=== PATIENT | female | born 1980 | race Hispanic/Latino ===

== ENCOUNTER 2022-08-28 09:03 | Emergency (ER) | payer OTHER, SELFPAY ==
[2022-08-28 09:51] VITALS: BP 112/68; PULSE 84; RESP 16; TEMP 36.7; O2SAT 99
--- NOTE | 2022-08-28 10:13 | ED.URI ---
HPI - URI/Sore Throat General Chief Complaint: Upper Respiratory Infection Stated Complaint: ear pain/st/left eye pain Time Seen by Provider: 08/28/22 10:14 Source: patient and RN notes reviewed Mode of arrival: ambulatory Limitations: no limitations History of Present Illness HPI Narrative: 42-year-old female presenting for complaint of sinus congestion and drainage, right ear pain, and left eye irritation over the last 4 days. Sore throat started yesterday. Left eye feels like 'something is in the eye.' Denies pain, vision changes, photophobia, or discharge. She endorses her children were sick with influenza last week. She has not taken anything for symptoms. Denies cough or shortness of breath, wheezing, nausea vomiting or diarrhea, fevers or chills. MD elicited complaint: cough Related Data Allergies Allergy/AdvReac Type Severity Reaction Status Date / Time No Known Allergies Allergy Verified 08/28/22 10:12 Review of Systems Review of Systems: CONSTITUTIONAL: Denies malaise, chills, sweats, fever EYES: Denies visual changes, redness, or discharge ENT: Reports rhinorrhea, congestion, sinus pain, otalgia, sore throat CARDIOVASCULAR: Denies chest pain, palpitations, edema RESPIRATORY: Reports post nasal drainage. Denies dyspnea GASTROINTESTINAL: Denies abdominal pain, nausea, vomiting, diarrhea SKIN: Denies rash or itching MUSCULOSKELETAL: Denies myalgia NEUROLOGIC: Denies headache Exam Narrative: GENERAL: Ill-appearing, nontoxic EYES: PERRLA, EOMI conjunctivae clear, no FB. No lid swelling or nodules. ENT: Mucous membranes moist. TMs pearly wahl with dull light reflex bilaterally; no tragal tenderness. Oropharynx erythematous without lesions or exudate, no drooling, no hoarseness, no trismus, uvula midline. No tripod positioning, muffled voice, soft palate or pharyngeal wall bulging NECK: Supple. No lymphadenopathy CHEST: Clear to auscultation, breath sounds equal. HEART: Regular rate and rhythm. No murmur heard. SKIN: Warm, dry, no rash. NEURO: Alert and oriented x3. PSYCH: Normal mood and affect Course Course Emergency Course: Patient is aware of diagnosis, understands and agrees to treatment plan. Anticipatory guidance given. Patient agrees to follow-up as directed and is aware of reasons to seek care at the emergency department. Portions of this record may have been created with voice recognition software Level of Care: Express Care Visit Vital Signs Vital signs: Vital Signs Temperature 98.0 F 08/28/22 09:51 Pulse Rate 84 08/28/22 09:51 Respiratory Rate 16 08/28/22 09:51 Blood Pressure 112/68 08/28/22 09:51 Pulse Oximetry 99 08/28/22 09:51 Oxygen Delivery Room Air 08/28/22 09:51 Temperature 98.0 F 08/28/22 09:51 Pulse Rate 84 08/28/22 09:51 Respiratory Rate 16 08/28/22 09:51 Blood Pressure 112/68 08/28/22 09:51 Pulse Oximetry 99 08/28/22 09:51 Oxygen Delivery Room Air 08/28/22 09:51 reviewed Procedures FB Removal Eye Foreign Body #1: Foreign Body Removal Date: 08/28/22 Location: eye (L) Topical anesthetic used: tetracaine Evidence of corneal penetration: No Technique: irrigation and eye wash bottle Procedure performed under: direct visualization with magnification and other (dorsey lamp) Patient tolerated procedure: well and no complications Foreign Body Removal Narrative: No FB or corneal abrasion on exam. MDM - URI/Sore Throat MDM Narrative Medical decision making narrative: Advised supportive measures and signs/symptoms to go to the ER. Pt is appropriate for outpt treatment and f/u. Differential Diagnosis Differential diagnosis: Likely upper respiratory infection, sinusitis and viral infection Discharge Plan Discharge Clinical Impression: Viral infection, Irritation of left eye Patient Disposition: Home, Self-Care Condition: Stable Instructions: Upper Respiratory Infection (ED)
== END 2022-08-28 10:36 | disposition home or self-care (01) ==
PROVIDERS: Emergency Provider Nurse Practitioner Family
DX: B34.9 Viral infection, unspecified (principal); H57.12 Ocular pain, left eye
CPT/HCPCS: 99212; A9270; G0463

== ENCOUNTER 2023-05-29 15:44 | Emergency (ER) | payer OTHER, SELFPAY ==
[2023-05-29 15:54] VITALS: BP 113/82; PULSE 85; RESP 16; TEMP 36.8; O2SAT 99
--- NOTE | 2023-05-29 16:26 | ED.URI ---
HPI - URI/Sore Throat General Chief Complaint: Upper Respiratory Infection Stated Complaint: Cough and Shortness of Breath Time Seen by Provider: 05/29/23 16:19 Source: patient and RN notes reviewed Mode of arrival: ambulatory Limitations: no limitations History of Present Illness HPI Narrative: [age] year old female presents with concern for 2-3 day history of cough, chest congestion, ears popping, body aches, chills, rhinorrhea. She reports she has been taking allergy medicine without relief. 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 MD elicited complaint: cough and sore throat Related Data Allergies Allergy/AdvReac Type Severity Reaction Status Date / Time No Known Allergies Allergy Verified 05/29/23 16:03 Review of Systems Review of Systems: CONSTITUTIONAL: Reports malaise, chills. Denies fever. EYES: Denies visual changes, redness, or discharge. ENT: Reports rhinorrhea, congestion, otalgia and sore throat. CARDIOVASCULAR: Denies chest pain, palpitations, or edema. RESPIRATORY: Reports cough, chest congestion. Denies dyspnea. GASTROINTESTINAL: Denies abdominal pain, nausea, vomiting, diarrhea SKIN: Denies rash or itching. MUSCULOSKELETAL: Reports myalgia. NEUROLOGIC: Denies headache. All systems reviewed & are unremarkable except as noted in HPI and below PMFSH Comments At time of signature, agree with nursing past medical, surgical, social and family history. There is no relevant family history pertinent to the presenting complaint Exam Narrative: GENERAL: Nontoxic-appearing and in no acute distress. HEAD: Normocephalic EYES: PERRLA, conjunctivae clear ENT: Nares clear, turbinates edematous and erythematous, clear discharge. Mucous membranes moist. TM pearly wahl with dull light reflex bilaterally; no tragal tenderness. Oropharynx not erythematous without lesions. Tonsils not enlarged and without exudate, no drooling, no hoarseness, no trismus, uvula midline. NECK: Supple. No lymphadenopathy CHEST: Clear to auscultation, breath sounds equal. No wheezing, rhonchi, rales, or stridor. No respiratory distress, speaks in full sentences. HEART: Regular rate and rhythm. No murmur heard. SKIN: Warm, dry, no rash. NEURO: Alert and oriented x3. PSYCH: Normal mood and affect Course Course Emergency Course: Patient is aware of diagnosis, understands and agrees to treatment plan. Anticipatory guidance given. Patient agrees to follow-up as directed and is aware of reasons to seek care at the emergency department. Portions of this record may have been created with voice recognition software Level of Care: Express Care Visit Vital Signs Vital signs: Vital Signs Temperature 98.2 F 05/29/23 15:54 Pulse Rate 85 05/29/23 15:54 Respiratory Rate 16 05/29/23 15:54 Blood Pressure 113/82 05/29/23 15:54 Pulse Oximetry 99 05/29/23 15:54 Oxygen Delivery Room Air 05/29/23 15:54 Temperature 98.2 F 05/29/23 15:54 Pulse Rate 85 05/29/23 15:54 Respiratory Rate 16 05/29/23 15:54 Blood Pressure 113/82 05/29/23 15:54 Pulse Oximetry 99 05/29/23 15:54 Oxygen Delivery Room Air 05/29/23 15:54 Reviewed. MDM - URI/Sore Throat MDM Narrative Medical decision making narrative: Differential diagnosis considered: Garcia virus, strep pharyngitis, allergic rhinitis, upper respiratory tract infection, sinusitis, rhinosinusitis, nasopharyngitis. viral pharyngitis, otitis media, otitis externa, pneumonia, bronchitis, viral cough syndrome, viral syndrome, and influenza. Exam findings show no acute concerns or changes; patient is non-toxic appearing and is in no distress. Patient is appropriate for outpatient treatment and follow-up. Lab Data Attestation: I reviewed the patient's lab results. Labs: Lab Results 05/29/23 Range/Units 16:08 POC SARS CoV-2 Ag Negative (Negative) Influenza A Screen Negative Re
== END 2023-05-29 16:30 | disposition home or self-care (01) ==
PROVIDERS: Emergency Provider Nurse Practitioner
DX: J06.9 Acute upper respiratory infection, unspecified (principal); Z20.822 Contact with and (suspected) exposure to COVID-19
CPT/HCPCS: 87081; 87426; 87804; 87880; 99213; C9803; G0463

== ENCOUNTER 2023-10-14 08:18 | Outpatient (CLI) | payer OTHER, SELFPAY ==
--- NOTE | ~2023-10-14 | MM_ITS ---
EXAMINATION: MM screening andrew BI w harrison HISTORY: Screening TECHNIQUE: Craniocaudal and mediolateral oblique 3-D tomosynthesis images were obtained and synthetic 2-D images were generated. CAD analysis was submitted and interpreted. COMPARISON: No prior mammogram is available for comparison at this institution. BREAST PARENCHYMAL COMPOSITION: The breasts are heterogeneously dense, which may obscure small masses FINDINGS: There are bilateral breast asymmetries in the upper aspect of both breasts on MLO views. Th ere are no discrete masses or suspicious calcifications. IMPRESSION: 1. Bilateral breast asymmetries. 2. Additional mammographic views and possible breast ultrasound are recommended. BI-RADS Category 0: Incomplete: Needs additional imaging evaluation. Reviewed, dictated and finalized at location A. RNET ARCHITECT IMPRESSION: 1. Bilateral breast asymmetries. 2. Additional mammographic views and possible breast ultrasound are recommended . BI-RADS Category 0: Incomplete: Needs additional imaging evaluation.
== END 2023-10-14 08:19 | disposition home or self-care (01) ==
LOC: ANHIMG 08:21
PROVIDERS: Visit Provider Nurse Practitioner
DX: Z12.31 Encounter for screening mammogram for malignant neoplasm of breast (principal); R92.8 Other abnormal and inconclusive findings on diagnostic imaging of breast
CPT/HCPCS: 77063; 77067

== ENCOUNTER 2023-11-07 10:07 | Outpatient (CLI) | payer OTHER, SELFPAY ==
--- NOTE | ~2023-11-07 | MMUS_ITS ---
EXAMINATION: MM diagnostic andrew BI w harrison, US breast BI complete HISTORY: Bilateral breast asymmetries reported on 10/14/2023 bilateral screening mammogram examination TECHNIQUE: Additional 3-D tomosynthesis images of both breasts were performed and synthetic 2-D image s were generated. CAD analysis was submitted and interpreted. High resolution complete bilateral sugar st ultrasound examination including all 4 quadrants and subareolar area of each breast was performed. COMPARISON: 10/14/2023 bilateral screening mammogram FINDINGS: MAMMOGRAPHIC FINDINGS: Heterogeneously dense stroma in both breasts which may obscure masses. No suspicious mass, architectu ral distortion, malignant calcification, skin thickening or retraction of either breast is evident. ULTRASOUND: Right breast: Dense fibroglandular stroma is noted. In the subareolar area of the right breast there is a 0.9 x 1.4 cm circumscribed sonolucency with thr ough transmission and posterior enhancement consistent with simple cyst. No suspicious mass or shadowing of the right breast is detected. Left breast: There is dense fibroglandular stroma. No suspicious left breast mass or shadowing is det ected. IMPRESSION: 1. Benign right breast subareolar 1.4 cm simple cyst; no mammographic or sonographic evidence of donald gnancy in either breast is detected 2. Routine mammographic screening is recommended. BI-RADS Category 2: Benign finding(s). Reviewed, dictated and finalized at location A. S COORDINATOR IMPRESSION: 1. Benign right breast subareolar 1.4 cm simple cyst; no mammographic or sonogr aphic evidence of malignancy in either breast is detected 2. Routine mammographic screening is recommended. BI-RADS Category 2: Benign finding(s).
== END 2023-11-07 10:08 | disposition home or self-care (01) ==
PROVIDERS: Visit Provider Nurse Practitioner
DX: R92.2 Inconclusive mammogram (principal)
CPT/HCPCS: 76641; 77062; 77066; G0279

== ENCOUNTER 2024-02-25 19:34 | Emergency (ER) | payer OTHER, SELFPAY ==
[2024-02-25 19:40] VITALS: BP 116/70; PULSE 75; RESP 20; TEMP 36.2; O2SAT 98
[2024-02-25 20:09] LABS: Appearance Urine Cloudy (Clear); Bacteria Urine 1+ /hpf; Basophils Percent Auto 0.4 % (0.2-1.2); Bilirubin Urine Negative (Negative); Blood Urine 2+ (Negative); Color Urine Yellow (Yellow); Eosinophils Absolute Auto 0.2 K/mm3 (0-0.3); Eosinophils Percent Auto 1.6 % (0-4.4); Glucose Urine UA Negative (Negative); Hematocrit 40.3 % (37.0-47.0); Hemoglobin 13.7 g/dL (12.0-15.0); Immature Granulocyte Absolute 0.02 K/mm3 (0.00-0.031); Immature Granulocyte Percent A 0.2 % (0-0.5); Ketones Urine Negative (Negative); Leukocyte Esterase Ur 2+ LEU/UL (Negative); Lymphocytes Absolute Auto 2.93 K/mm3 (0.9-3.2); Lymphocytes Percent Auto 31.4 % (18.3-44.2); Mean Corpuscular Hemoglobin 31.9 pg (26-34); Mean Corpuscular Volume 93.7 fl (80-100); Mean Platelet Volume 10.3 fl (7.4-10.4); Monocytes Absolute Auto 0.6 K/mm3 (0.1-0.6); Monocytes Percent Auto 6.6 % (2.6-8.5); Neutrophils Absolute Auto 5.6 K/mm3 (1.3-6.7); Neutrophils Percent Auto 59.8 % (45.5-73.1); Nitrate Urine Negative (Negative); Non Pathogenic Casts 0-2; Platelet Count Result 250 k/mm3 (150-375); Protein Urine Trace mg/dL (Negative); Red Cell Distribution Width 12.9 % (11.5-14.5); Specific Grav Ur 1.028 (1.001-1.035); Squamous Epithelial Cell Urine Few /hpf (Few); WBC Urine >100 /hpf (0-3); White Blood Count 9.3 K/mm3 (4.5-10.0); pH Urine 5.5 (5.0-9.0)
[2024-02-25 20:13] LABS: Add Urine Microscopic? YES
[2024-02-25 20:14] LABS: Alanine Aminotransferase 32 U/L (6-35); Albumin Level 4.7 g/dL (3.5-5.1); Alkaline Phosphatase 77 U/L (38-126); Anion Gap 8 mmol/L (4-12); Aspartate Amino Transferase 31 U/L (14-36); Bilirubin,Total 0.5 mg/dL (0.2-1.3); Blood Urea Nitrogen 10 mg/dL (7-17); Calcium 8.9 mg/dL (8.4-10.2); Carbon Dioxide 23 mmol/L (22-30); Chloride 106 mmol/L (98-107); Estimated CRCL calculation 91 ml/min; Estimated Glomerular Filt Rate > 60; Glucose 95 mg/dL (65-110); Lipase 123 U/L (23-300); Potassium 3.8 mmol/L (3.4-5.0); Sodium 137 mmol/L (137-145)
[2024-02-25 23:04] VITALS: BP 109/72; PULSE 61; RESP 18; O2SAT 100
[2024-02-25 23:59] LABS: Pregnancy On Board Control Positive
[2024-02-26] LABS: Urine Pregnancy Test Negative
== END 2024-02-26 01:05 | disposition left against medical advice (07) ==
LOC: ANHED 23:56
PROVIDERS: Emergency Medicine; Emergency Provider Emergency Medicine
DX: R31.9 Hematuria, unspecified (principal)
CPT/HCPCS: 36415; 80053; 81001; 81025; 83690; 85025; 87086; 87088; 99199

== ENCOUNTER 2024-07-25 10:52 | Emergency (ER) | payer OTHER, SELFPAY ==
[2024-07-25 10:59] VITALS: BP 119/77; PULSE 74; RESP 19; TEMP 37.1; O2SAT 99
--- NOTE | 2024-07-25 11:48 | ED.SKABFB ---
HPI - Skin/Abscess/Foreign Bdy General Chief complaint: Skin/Abscess/Foreign Body Stated complaint: Eyes Irritation Time Seen by Provider: 07/25/24 11:48 Source: patient, RN notes reviewed and old records reviewed Mode of arrival: ambulatory Limitations: no limitations History of Present Illness HPI narrative: Patient presents with complaints of bilateral eye irritation that has been present for 2-3 weeks. She denies any injury or trauma. She denies any drainage her a.m. adding. She denies any redness. She reports she feels as though she has tired ?mau? sensation to both eyes. She denies any visual disturbances. Does not use eye makeup. Does not wear contact lenses. Has not seen accounting professional for her complaints. Related Data Home Medications Medication Instructions Recorded Confirmed No Home Medications 07/25/24 07/25/24 Allergies Allergy/AdvReac Type Severity Reaction Status Date / Time No Known Allergies Allergy Verified 07/25/24 10:58 Review of Systems Review of Systems: All systems reviewed & are unremarkable except as noted in HPI and below Constitutional: Constitutional: Reports no additional constitutional complaints Eyes: Eyes: Reports as per HPI, Reports no additional eye complaints, Denies blind spots, Denies blurry vision, Denies change in vision, Reports irritation and Denies requires corrective lenses ENT: Reports system reviewed and no additional complaints, except as documented Cardiovascular: Cardiovascular: Reports no additional cardiovascular complaints Respiratory: Respiratory: Reports no additional respiratory complaints Gastrointestinal: Gastrointestinal: Reports no additional gastrointestinal complaints PMFSH Comments At the time of my signature, I reviewed and agree with the nursing past medical, surgical, social, and family history. There is no relevant family history pertinent to the patient complaint. Exam Const: General: cooperative, no acute distress, alert and awake Orientation/consciousness: oriented to person, oriented to place and oriented to time HENMT: Head: normal to inspection Eyes: General: appearance normal, both eyes and all related structures Alignment and Position: alignment normal Periorbital: periorbital findings normal Eyelids: eyelids normal Conjunctivae: conjunctivae normal Sclera: sclerae normal Resp: Effort & Inspection: normal respiratory effort and able to speak in complete sentences Auscultation: clear to auscultation bilaterally, no crackles, no rales, no rhonchi and no wheezes Cardio: Palpation: normal PMI Rate: regular rate Rhythm: regular rhythm Heart sounds: S1 normal heart sound present and S2 normal heart sound present Neuro: General: oriented to person, oriented to place and oriented to time Cranial nerves: Yes CN's II-XII intact bilaterally Psych: Appearance: grossly normal Thought process: Normal thought process present Insight: Good insight present (Psych) Judgement: Good judgement present (Psych) Course Course Level of Care: Express Care Visit Vital Signs Vital signs: Vital Signs Temperature 98.7 F 07/25/24 10:59 Pulse Rate 74 07/25/24 10:59 Respiratory Rate 19 07/25/24 10:59 Blood Pressure 119/77 07/25/24 10:59 Pulse Oximetry 99 07/25/24 10:59 Oxygen Delivery Room Air 07/25/24 10:59 Temperature 98.7 F 07/25/24 10:59 Pulse Rate 74 07/25/24 10:59 Respiratory Rate 19 07/25/24 10:59 Blood Pressure 119/77 07/25/24 10:59 Pulse Oximetry 99 07/25/24 10:59 Oxygen Delivery Room Air 07/25/24 10:59 Reviewed MDM - Skin/Abscess/Foreign Bdy MDM Narrative Medical decision making narrative: Reassuring physical exam, symptoms clinically correlate with dry eye. Recommend the patient follow with accounting professional. Start [id number] lubricating eye drops. Emergency department for new or worse symptoms. Discharge instructions reviewed with patient, as well as provided in writing per nursing staff. The instructions also include specific and strict return/GO TO THE ER as well as f/u information. All questions have been answered, and the patient deny any further questions with discharge and discharge plan. Some parts of this dictation were generated by voice recognition software and may contain typographical and/or grammatical inaccuracies. Discharge Plan Discharge Clinical Impression: Dry eye Patient Disposition: Home, Self-Care Condition: Stable Instructions: Antibiotic Form, Eye Lubricant (Into the eye) Additional Instructions: Use over the counter lubricating eyedrops per package instructions. Some examples include Blink or Systane. Follow-up with primary care provider and eye professional. Emergency department for new or worse symptoms. Patient Language: Romanian Prescriptions: No Action No Home Medications Follow-up/Referrals: PHYSICIAN,REGISTERED PHARMACIST [Primary Care Provider] - Time of Disposition: 11:55
== END 2024-07-25 12:10 | disposition home or self-care (01) ==
PROVIDERS: Emergency Provider Nurse Practitioner Family
DX: H04.123 Dry eye syndrome of bilateral lacrimal glands (principal)
CPT/HCPCS: 99211; G0463

== ENCOUNTER 2024-10-19 13:14 | Emergency (ER) | payer OTHER, SELFPAY ==
--- NOTE | ~2024-10-19 | CT_ITS ---
EXAMINATION: CT IAC/mastoids BI w con DATE: 10/19/2024 15:01 INDICATION: Left ear pain and swelling. TECHNIQUE: Computed tomography (CT) of the temporal bones was performed with 75 mL Omnipaque 350 intr avenous contrast. Automated exposure control and iterative reconstruction technique were employed. Th e dose-length product was 421.11 mGy-cm. COMPARISON: None FINDINGS: RIGHT TEMPORAL BONE: The internal auditory canal, cochlea, vestibule, semicircular canals, vestibular aqueduct, and caroti d canal are normal. There is a high riding jugular bulb. The facial nerve course, ossicles, Prussak s pace, scutum, tympanic membrane, and external auditory canal are normal. There is a trace mastoid eff usion. LEFT TEMPORAL BONE: The internal artery canal, cochlea, vestibule, semicircular canals, vestibular aqueduct, and carotid canal are normal. There is a high right jugular bulb. The facial nerve course, ossicles, Prussak spac e, scutum, tympanic membrane, and mastoid air cells are normal. There is a small volume of cerumen in left external auditory canal. IMPRESSION: 1. No etiology for the patient's symptoms. 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
[2024-10-19 13:22] VITALS: BP 123/62; PULSE 93; RESP 14; TEMP 36.8; O2SAT 100
--- NOTE | 2024-10-19 13:39 | ED.HA ---
HPI - Headache General Chief Complaint: Headache <Caroline Bennett APRN - Last Filed: 10/19/24 13:42> Stated Complaint: headache, left earache <Caroline Bennett APRN - Last Filed: 10/19/24 13:42> Time Seen by Provider: 10/19/24 13:30 <Caroline Bennett APRN - Last Filed: 10/19/24 13:42> Focused HPI: Patient is a 44-year-old female who presents to the ER with a headache, left-sided ear pain and swelling. She reports the pain started on Saturday and progressively gotten worse. She reports the pain is an 8/10 at this time. Patient also endorses a swollen lymph node behind her left ear and some swelling in front of her L tragus. She endorses pain with movement and at rest. Patient denies any relevant medical history related to this ER visit. She reports she has an IUD so she does not get periods. Patient denies any neck stiffness, recent fevers, recent congestion. GENERAL: Well-appearing, well-nourished, and in no acute distress. HEAD: Normocephalic, atraumatic. CHEST: Clear to auscultation. ?No respiratory distress. HEART: Regular rate and rhythm.? NEURO: ?Alert and oriented x3. Patient screened in triage and initial orders placed.? ?Additional care and disposition to be based upon?diagnostic testing and treatment. <Caroline Bennett APRN - Last Filed: 10/19/24 13:42> History of Present Illness HPI Narrative: Patient 44-year-old female who presents emergency department with chief complaint of left-sided ear pain and swelling. The patient reports that she has tenderness behind the left ear reports that it has become more tender over the weekend low patient denies excessive drainage from the ear denies changes in her hearing patient does report that she has had a headache <Arash Pruitt MD - Last Filed: 10/19/24 16:23> Related Data Allergies/Adverse Reactions: Allergies Allergy/AdvReac Type Severity Reaction Status Date / Time No Known Allergies Allergy Verified 10/19/24 14:13 <Caroline Bennett APRN - Last Filed: 10/19/24 13:42> Review of Systems Review of Systems: A 10 system review of systems was completed on the patient and is negative except for what is stated in the HPI. Nursing and ancillary documentation was reviewed. <Arash Pruitt MD - Last Filed: 10/19/24 16:23> Exam Narrative: GENERAL: Well-appearing, well-nourished, and in no acute distress. HEAD: Normocephalic, atraumatic. EYES: PERRLA and EOMI. ENT: Nares clear, no rhinorrhea or epistaxis. Mucous membranes moist. Slight tenderness by the left ear NECK: Supple. CHEST: Clear to auscultation. No respiratory distress. HEART: Regular rate and rhythm. No murmur heard. Normal peripheral pulses. ABDOMEN: Soft, nontender, nondistended, normal active bowel sounds. EXTREMITIES: Normal range of motion. No edema. SKIN: Warm, dry, no rash. NEURO: No focal deficits. Alert and oriented x3. PSYCH: Normal mood and affect. <Arash Pruitt MD - Last Filed: 10/19/24 16:23> Course Vital Signs Vital signs: Vital Signs Temperature 36.8 C 10/19/24 13:22 Pulse Rate 93 10/19/24 13:22 Respiratory Rate 14 10/19/24 13:22 Blood Pressure 123/62 10/19/24 13:22 Pulse Oximetry 100 10/19/24 13:22 Oxygen Delivery Room Air 10/19/24 13:22 Temperature 36.8 C 10/19/24 13:22 Pulse Rate 74 10/19/24 14:42 Respiratory Rate 15 10/19/24 14:42 Blood Pressure 101/59 L 10/19/24 14:42 Pulse Oximetry 100 10/19/24 14:42 Oxygen Delivery Room Air 10/19/24 13:22 <Caroline Bennett, AIR CONTROL/[employer]I AIR WARFARE OFFICER - Last Filed: 10/19/24 13:42> Vital Signs Temperature 36.8 C 10/19/24 13:22 Pulse Rate 93 10/19/24 13:22 Respiratory Rate 14 10/19/24 13:22 Blood Pressure 123/62 10/19/24 13:22 Pulse Oximetry 100 10/19/24 13:22 Oxygen Delivery Room Air 10/19/24 13:22 Temperature 36.8 C 10/19/24 13:22 Pulse Rate 74 10/19/24 14:42 Respiratory Rate 15 10/19/24 14:42 Blood Pressure 101/59 L 10/19/24 14:42 Pulse Oximetry 100 10/19/24 14:42 Oxygen Delivery Room Air 10/19/24 13:22 <Arash Pruitt MD - Last Filed: 10/19/24 16:23> MDM - Headache MDM Narrative Medical decision making narrative: Differential diagnosis includes otitis media, inter oral infection, mastoiditis, There is palpable lymphadenopathy behind the left are equal S CT scan showed no acute abnormality laboratory studies were within normal limits. <Arash Pruitt MD - Last Filed: 10/19/24 16:23> Lab Data Result diagrams: 10/19/24 14:14 10/19/24 14:14 <Caroline Bennett APRN - Last Filed: 10/19/24 13:42> Labs: Lab Results 10/19/24 10/19/24 Range/Units 14:14 14:17 WBC 7.4 (4.5-10.0) K/mm3 RBC 4.28 (4.2-5.4) M/mm3 Hgb 13.7 (12.0-15.0) g/dL Hct 40.5 (37.0-47.0) % MCV 94.6 (80-100) fl MCH 32.0 (26-34) pg MCHC 33.8 (32-36) g/dl RDW 13.1 (11.5-14.5) % Plt Count 257 (150-375) k/mm3 MPV 10.7 H (7.4-10.4) fl Immature Gran % (Auto) 0.4 (0-0.5) % Neut % (Auto) 67.8 (45.5-73.1) % Lymph % (Auto) 23.5 (18.3-44.2) % Davis % (Auto) 5.7 (2.6-8.5) % Eos % (Auto) 1.9 (0-4.4) % Baso % (Auto) 0.7 (0.2-1.2) % Lymph # (Auto) 1.73 (0.9-3.2) K/mm3 Davis # (Auto) 0.4 (0.1-0.6) K/mm3 Eos # (Auto) 0.1 (0-0.3) K/mm3 Baso # (Auto) 0.1 (0.0-0.1) K/mm3 Abs Immat Gran (auto) 0.03 (0.00-0.031) K/mm3 Absolute Neuts (auto) 5.0 (1.3-6.7) K/mm3 Absolute Nucleated RBC 0.000 (0.0-0.012) K/mm3 Nucleated RBC % 0.0 (0.0-0.2) % Sodium 137 (137-145) mmol/L Potassium 3.8 (3.4-5.0) mmol/L Chloride 104 (98-107) mmol/L Carbon Dioxide 24 (22-30) mmol/L Anion Gap 9 (4-12) mmol/L BUN 12 (7-17) mg/dL Creatinine 0.59 L (0.7-1.0) mg/dL Estim Creat Clear Calc 95 ml/min Estimated GFR > 60 (59 - ) Glucose 143 H (65-110) mg/dL Calcium 9.0 (8.4-10.2) mg/dL Total Bilirubin 0.5 (0.2-1.3) mg/dL AST 41 H (14-36) U/L ALT 54 H (6-35) U/L Alkaline Phosphatase 74 (38-126) U/L Total Protein 8.0 (6.3-8.2) g/dL Albumin 4.5 (3.5-5.1) g/dL POC Urine HCG, Qual Negative (Negative) <Caroline Bennett, AIR CONTROL/[employer] WARFARE OFFICER - Last Filed: 10/19/24 13:42> Lab Results 10/19/24 10/19/24 Range/Units 14:14 14:17 WBC 7.4 (4.5-10.0) K/mm3 RBC 4.28 (4.2-5.4) M/mm3 Hgb 13.7 (12.0-15.0) g/dL Hct 40.5 (37.0-47.0) % MCV 94.6 (80-100) fl MCH 32.0 (26-34) pg MCHC 33.8 (32-36) g/dl RDW 13.1 (11.5-14.5) % Plt Count 257 (150-375) k/mm3 MPV 10.7 H (7.4-10.4) fl Immature Gran % (Auto) 0.4 (0-0.5) % Neut % (Auto) 67.8 (45.5-73.1) % Lymph % (Auto) 23.5 (18.3-44.2) % Davis % (Auto) 5.7 (2.6-8.5) % Eos % (Auto) 1.9 (0-4.4) % Baso % (Auto) 0.7 (0.2-1.2) % Lymph # (Auto) 1.73 (0.9-3.2) K/mm3 Davis # (Auto) 0.4 (0.1-0.6) K/mm3 Eos # (Auto) 0.1 (0-0.3) K/mm3 Baso # (Auto) 0.1 (0.0-0.1) K/mm3 Abs Immat Gran (auto) 0.03 (0.00-0.031) K/mm3 Absolute Neuts (auto) 5.0 (1.3-6.7) K/mm3 Absolute Nucleated RBC 0.000 (0.0-0.012) K/mm3 Nucleated RBC % 0.0 (0.0-0.2) % Sodium 137 (137-145) mmol/L Potassium 3.8 (3.4-5.0) mmol/L Chloride 104 (98-107) mmol/L Carbon Dioxide 24 (22-30) mmol/L Anion Gap 9 (4-12) mmol/L BUN 12 (7-17) mg/dL Creatinine 0.59 L (0.7-1.0) mg/dL Estim Creat Clear Calc 95 ml/min Estimated GFR > 60 (59 - ) Glucose 143 H (65-110) mg/dL Calcium 9.0 (8.4-10.2) mg/dL Total Bilirubin 0.5 (0.2-1.3) mg/dL AST 41 H (14-36) U/L ALT 54 H (6-35) U/L Alkaline Phosphatase 74 (38-126) U/L Total Protein 8.0 (6.3-8.2) g/dL Albumin 4.5 (3.5-5.1) g/dL POC Urine HCG, Qual Negative (Negative) <Arash Pruitt MD - Last Filed: 10/19/24 16:23> Discharge Plan Discharge Clinical Impression: Lymphadenopathy <Carloine Bennett APRN - Last Filed: 10/19/24 13:42> Patient Disposition: Home, Self-Care <Caroline Bennett APRN - Last Filed: 10/19/24 13:42> Condition: Stable <Caroline Bennett APRN - Last Filed: 10/19/24 13:42> Instructions: Antibiotic Form, Lymphadenopathy (ED) <Caroline Bennett APRN - Last Filed: 10/19/24 13:42> Patient Language: Maltese <Caroline Bennett APRN - Last Filed: 10/19/24 13:42> Prescriptions: New amoxicillin-pot clavulanate 875-125 mg tablet 1 tablet PO Q12H 10 Days Qty: 20 0RF <Caroline Bennett APRN - Last Filed: 10/19/24 13:42> Follow-up/Referrals: PHYSICIAN,DIRECTOR VOLUNTEER SERVICES [Primary Care Provider] - Bladimir Guerrero MD [Physician] - <Caroline Bennett APRN - Last Filed: 10/19/24 13:42> Time of Disposition: 16:23 <Caroline Bennett APRN - Last Filed: 10/19/24 13:42> 16:23 <Arash Pruitt MD - Last Filed: 10/19/24 16:23>
[2024-10-19] MEDS: KETOROLAC (*BKC) 60 MG/2 ML VIAL IM (14:05)
[2024-10-19 14:22] LABS: BEDSIDEPREGUCG Negative (Negative)
[2024-10-19 14:28] LABS: Basophils Absolute Auto 0.1 K/mm3 (0.0-0.1); Basophils Percent Auto 0.7 % (0.2-1.2); Eosinophils Absolute Auto 0.1 K/mm3 (0-0.3); Eosinophils Percent Auto 1.9 % (0-4.4); Hematocrit 40.5 % (37.0-47.0); Hemoglobin 13.7 g/dL (12.0-15.0); Immature Granulocyte Absolute 0.03 K/mm3 (0.00-0.031); Immature Granulocyte Percent A 0.4 % (0-0.5); Lymphocytes Absolute Auto 1.73 K/mm3 (0.9-3.2); Lymphocytes Percent Auto 23.5 % (18.3-44.2); Mean Corpuscular HGB Conc 33.8 g/dl (32-36); Mean Corpuscular Volume 94.6 fl (80-100); Mean Platelet Volume 10.7 fl (7.4-10.4); Monocytes Absolute Auto 0.4 K/mm3 (0.1-0.6); Monocytes Percent Auto 5.7 % (2.6-8.5); Neutrophils Percent Auto 67.8 % (45.5-73.1); Platelet Count Result 257 k/mm3 (150-375); Red Blood Count 4.28 M/mm3 (4.2-5.4); Red Cell Distribution Width 13.1 % (11.5-14.5); White Blood Count 7.4 K/mm3 (4.5-10.0)
[2024-10-19 14:39] LABS: Alanine Aminotransferase 54 U/L (6-35); Albumin Level 4.5 g/dL (3.5-5.1); Alkaline Phosphatase 74 U/L (38-126); Anion Gap 9 mmol/L (4-12); Aspartate Amino Transferase 41 U/L (14-36); Bilirubin,Total 0.5 mg/dL (0.2-1.3); Blood Urea Nitrogen 12 mg/dL (7-17); Carbon Dioxide 24 mmol/L (22-30); Chloride 104 mmol/L (98-107); Estimated CRCL calculation 95 ml/min; Estimated Glomerular Filt Rate > 60; Glucose 143 mg/dL (65-110); Potassium 3.8 mmol/L (3.4-5.0); Sodium 137 mmol/L (137-145)
[2024-10-19 14:42] VITALS: BP 101/59; PULSE 74; RESP 15; O2SAT 100
[2024-10-19 16:47] VITALS: BP 107/69; PULSE 71; RESP 15; TEMP 36.4; O2SAT 100
--- OUTSIDE RECORDS SUMMARY | 2024-10-22 13:28 | XMS_ITS | Data Portability ---
Author Organization [facility] Address [address] [place] [address] [place] [address] Care Team Providers Care Asset Management Lead Name Role Phone GUILHERME PIEDRA Primary Care Provider Assessment Encounter Date Assessment Date Assessment LastModified by Organization Details LastModified Time 03/01/2022 03/01/2022 Annual gynecological exam performed. Patient will come back in a year unless there are new symptoms. Not available 02/27/2022 15:48:55 04/09/2022 04/09/2022 Annual gynecological exam performed. Patient will come back in a year unless there are new symptoms. [email or web address] Not available 04/09/2022 09:35:44 06/05/2023 06/05/2023 Annual gynecological exam performed. Patient will come back in a year unless there are new symptoms. [email or web address] Not available 06/05/2023 10:15:49 Plan of Treatment Reminders Order Date Submit Date Provider Last Modified By Organization Details Last Modified Time Details Appointments None recorded . Lab genetic disease analysis , blood or tissue 2021 022 [facility], [address], [place], [address], 09:09:44 pregnanc y test, urine 2022 023 [email or web address] [facility] [address], [address], [place], [address], 15:07:52 Referral None recorded . Procedures None recorded . Surgeries None recorded . Imaging MAMMO, screenin g, digital, bilatera l 2022 023 TRAC[facility], [address], [address] [address], [place], [address], 4 12:25:20 Medication Orders metronid azole 500 mg tablet 2021 022 [facility] #[id number], [address], [place], [place], [id number], 3 14:47:02 metronid azole 500 mg tablet 2021 022 [facility] #[id number], [address], [place], [place], [id number], 3 14:47:02 Macrobid 100 mg capsule 2022 023 [id number], [address], [place], [place], [id number], 3 11:01:32 Patient TargetsNo targets recorded. Patient InstructionsNo instructions recorded. Reason for Referral None Reported. Results Created Date Observation Date Name Description Value Unit Range Abnormal Flag Note LastModifiedBy Organization Detail LastModifiedTime 01/24/20 22 01/23/2022 CT/GC AND TRICH OMONA S VAGIN ADRIANA (RRNA ), SWAB chlamydia trachomatis, PCR Negati ve negati ve Not Available [facility] (Lab) [address], [place], [address], 01/26/2022 10:57:20 01/24/20 22 01/23/2022 CT/GC AND TRICH OMONA S VAGIN ADRIANA (RRNA ), SWAB neisseria gonorrhoeae, PCR Negati ve negati ve Not Available [facility] (Lab) [address], [place], [address], 01/26/2022 10:57:20 01/24/20 22 01/23/2022 CT/GC AND TRICH OMONA S VAGIN ADRIANA (RRNA ), SWAB trichomonas vaginalis ribosomal RNA (rrna) Negati ve negati ve Not Available [facility] (Lab) [address], [place], [address], 01/26/2022 10:57:20 01/24/20 22 01/23/2022 VAGIN ITIS/ VAGIN OSIS, DNA PROBE brent sp. detection, direct probe Negati ve negati ve Not Available [facility] (Lab) [address] [place], [address], 01/26/2022 10:57:21 01/24/20 22 01/23/2022 VAGIN ITIS/ VAGIN OSIS, DNA PROBE gardnerella vag. detection, direct probe Positi ve negati ve abnormal Not Available [facility] (Lab) [address] [place], [address], 01/26/2022 10:57:21 01/24/20 22 01/23/2022 VAGIN ITIS/ VAGIN OSIS, DNA PROBE trichomonas vag. detection, direct probe Negati ve negati ve Not Available [facility] (Lab) [address] [place], [address], 01/26/2022 10:57:21 04/09/20 22 04/09/2022 IMAGE GUIDE D PAP AND HPV REGAR DLESS image guided Pap, HPV regardless of Pap result SEE RESULT S BELOW CASE REPOR T: Cytol ogy Gynec ologi raul Repor t Case: [id number] Autho ann marie g Provi horace: Chanelle Hillman, FREDDY Colle cted: 04/09 1009 Order ing Locat ion: [place] [facility] Recei melissa: 04/10 0128 First Scree n: Nacha mpass ak, Sivil ay, CT Speci men: Scree jaime Pap - Image d, Cervi x STATE MENT OF ADEQU ACY: Satis facto ry for evalu ation Trans forma tion zone compo nent prese nt Parti ally obscu ring infla mmati on prese nt. FINAL DIAGN OSIS: Negat grover for Intra epith elial Lesio n or Trell dickinsoncy (NIL) . Shift in corina sugge stive of bacte rial vagin osis. Elect valdemarva awad d by Serge Jacobo, CT on 2021 at 4:37 PM ----- ----- ----- ----- ----- ----- ----- ----- ----- ----- ----- ----- ----- ----- ----- ----- ----- ---- HPV RESUL TS: HPV mRNA E6/E7 : No HPV mRNA Detec luanne NOTE: This high risk HPV mRNA assay detec ts fourt een high- risk HPV types (16, 18, 31, 33, 35, 39, 45, 51, 52, 56, 58, 59, 66, 68) witho ut diffe renti ation . COMME NT: Note: This speci men was revie wed by a Cytot echno logis t and/o r Patho logis t (as indic ated in this repor t) after evalu ation using the Thinp rep Imagi ng Syste m. CLINI RAUL INFOR MATIO N: Menst rual Statu s: LMP (if appli cable ): Clini raul Histo ry/Pr eviou s Pap: Type of Neopl kendrick (if appli cable ): Signi fican t Clini raul Findi ngs: Other Histo ry: Hormo maurice (if appli cable ): PAP EDUCA MAGDIEL L NOTE: The Pap Test is a scree jaime test with an inher ent false negat grover rate. Liqui d-bas ed sampl ing may decre ase, but will not elimi johan, false negat grover resul ts. A negat grover resul t does not precl ude the prese nce and/o r devel opmen t of disea se, since the prese nce of abnor mal cells in the sampl e depen ds on the locat ion of the lesio n and sampl ing techn ique. Jemma nued regul ar yashirae jaime is the best metho d of cance r preve ntion . If repor luanne cytol ogic findi ng do not corre late with physi raul and/o r histo rical findi ngs, furth er inves tigat ion is recom alejandra d, as clini monisha hernandes nted. Not Available [facility] [address], [place], [address], 04/12/2022 17:40:57 01/23/20 23 01/22/2023 pregn buck test, urine HCG negati ve Not Available [facility] [address], [place], [address], 01/22/2023 15:07:33 10/15/19 24 10/14/2023 MAMMO , scree jaime, digit al, bilat eral No observ ation record ed. [facility] [place] [address] (Mammography) [address], [place], [address], 10/16/2023 09:39:44 Result Notes None recorded. Problems Name Problem SNOMED Code Status Onset Date Resolution Date Notes Provider Name and Address Organization Details Recorded Time No current problems or disabili ty [id number] Active Leonor Mota [facility] 2 09:37:01 Pelvic and perineal pain 404728120 Completed 201802/28/2021 Pelvic and perineal pain;Rec orded Elsewher e: No Locat ion: [facility] S ource: EHR Sewer Pipe Sorter humble: N Practi ce ID: 0001 Antolin lable Time: 03:15:00 PM [address]o [facility] 1 17:31:[address] Concept Completed 201802/28/2021 Encntr for options advisor exam (general ) (routine ) w/o abn findings ;Recorde d Elsewher e: No Locat ion: [facility] S ource: EHR Sewer Pipe Sorter humble: N Practi ce ID: 0001 Antolin lable Time: 02:00:00 PM Chelsey covarrubias [facility] 17:31:52 Removal of intraute rine device Completed 201802/28/2021 Encounte r for removal of intraute rine contrace ptive device;R ecorded Elsewher e: No Locat ion: [facility] S ource: EHR Sewer Pipe Sorter humble: N Practi ce ID: 0001 Antolin lable Time: 10:00:00 AM Chelsey Carballo [facility] 17:31:56 Abdomina l pain [id number] Completed 201802/28/2021 Abdomina l pain;Rec orded Elsewher e: No Locat ion: [facility] S ource: EHR Sewer Pipe Sorter humble: N Practi ce ID: 0001 Antolin lable Time: 03:15:00 PM Chelsey Carballo [place] [facility] 17:31:47 Pregnanc y test negative [id number] Completed 201802/28/2021 Encounte r for pregnanc y test, result negative ;Recorde d Elsewher e: No Locat ion: [facility] Practi ce ID: 0001 Antolin lable Time: 10:45:00 AM Chelsey Carballo [place] [facility] 17:31:48 Insertio n of intraute rine contrace ptive device Completed 201802/28/2021 Encounte r for insertio n of intraute rine contrace ptive device;P ractice ID: [address] [facility] 17:31:53 Problem Notes None recorded. Procedures Surgical History Date Name Laterality Status Provider Name and Address Organization Details Recorded Time 03/17/2019 Date of Last Pap Smear completed Chelsey Doran [facility] 03/08/2021 17:13:42 Imaging Results Imaging Date Name Status LastModified by Organiz ation Details LastModified Time 10/14/2023 MAMMO, screening, digital, bilateral completed [address] (Mammography) [address], [place], [address], 10/16/2023 09:39:44 Procedure Notes None recorded. Medical Equipment None Reported. Allergies No known drug allergies Medications Name Sig Start Date Stop Date Status Note LastModified by Organization Details LastModified Time Mirena 21 mcg/24 hr (up to 8 years) 52 mg intrauterin e device Take by intrauter ine route. active Not Available Not Available No t Available promethazin e-DM 6.25 mg-15 mg/5 mL oral syrup TAKE 5 ML BY MOUTH EVERY 4 TO 6 HOURS NEEDED FOR COUGH 06/05 completed Not Available Not Available Not Available metronidazo le 500 mg tablet TAKE 1 TABLET BY MOUTH EVERY 12 HOURS FOR 7 DAYS 01/22 completed Not Available Not Available Not Available hydrocodone 7.5 mg-acetamin ophen 325 mg tablet TAKE 1 TABLET BY MOUTH EVERY 4 TO 6 HOURS NEEDED FOR PAIN 03/01 completed Not Available Not Available Not Available methylpredn isolone 4 mg tablets in a dose pack FOLLOW PACKAGE DIRECTION S 06/05 completed Not Available Not Available Not Available nitrofurant oin monohydrate /macrocryst als 100 mg capsule TAKE 1 CAPSULE BY MOUTH EVERY 12 HOURS FOR 7 DAYS active Not Available Not Available No t Available zinc 06/05 completed Not Available Not Available Not Available Fish Oil 06/05 completed Not Available Not Available Not Available Probiotic 06/05 completed Not Available Not Available Not Available Vitals Date Recorded Body height Body mass index (BMI) Body weight Systolic blood pressure Diastolic blood pressure Provider Name and Address Organization Details Last Updated DateTime 01/23/2022 162.56 cm 24.2 kg/m2 77073.52 g 104 mm[Hg] 64 mm[Hg] Helen Angeles [facility] 11:05:12 Date Recorded Body height Body mass index (BMI) Body weight Systolic blood pressure Diastolic blood pressure Provider Name and Address Organization Details Last Updated DateTime 03/01/2022 162.56 cm 24.1 kg/m2 08273.65 g 108 mm[Hg] 65 mm[Hg] Helen Angeles [facility] 2 10:11:36 Date Recorded Body height Body mass index (BMI) Body weight Systolic blood pressure Diastolic blood pressure Provider Name and Address Organization Details Last Updated DateTime 04/09/2022 162.56 cm 24.4 kg/m2 50436.55 g 98 mm[Hg] 60 mm[Hg] [facility] 09:36:55 Date Recorded Body height Systolic blood pressure Diastolic blood pressure Provider Name and Address Organization Details Last Updated DateTime 01/22/2023 162.56 cm 108 mm[Hg] 72 mm[Hg] [facility] 01/22/2023 14:46:58 Date Recorded Body height Body mass index (BMI) Body weight Systolic blood pressure Diastolic blood pressure Provider Name and Address Organization Details Last Updated DateTime 06/05/2023 162.56 cm 25.1 kg/m2 27189.49 g 110 mm[Hg] 69 mm[Hg] [facility] 3 10:16:14 Social History Question Answer Notes LastModified by [employer] Details LastModified Time Tobacco Smoking Status Never Smoker [facility] 03/08/2021 17:16:42 What Is Your Level Of Alcohol Consumption? Occasional [email or web address] Information not available 04/09/2022 Are You Blind Or Do You Have Difficulty Seeing? No Information not available 01/23/2022 Are You Deaf Or Do You Have Serious Difficulty Hearing? No Information not available 01/23/2022 What Type Of Diet Are You Following? REGULAR Information not available 01/23/2022 Sex: Unknown Functional Status Question Answer Note LastModified by [employer] Details LastModified Time Do you have difficulty walking or climbing stairs? No Information not available 01/23/2022 Are you able to walk? YESWOREST Information not available 01/23/2022 Are you able to care for yourself? Yes Information not available 01/23/2022 Do you have difficulty dressing or bathing? No Information not available 01/23/2022 What is your exercise level? Occasional Information not available 01/23/2022 Mental Status None recorded. Family History Relationship Description Onset Age of this Age Resolved Age Notes LastModified by Organization Details LastModified Time Brother Seizure disorder [email or web address] Not available 2020 17:15:16 Sister Polycystic ovary syndrome [email or web address] Not available 2020 17:15:42 Sister Cyst of ovary Not available 2020 17:16:04 Sister Malignant tumor of ovary Not available 2020 17:16:26 Medical History Condition Response Allergies (Food, seasonal, environmental ) N Other N Breast Cancer N Drug/Latex Allergies/Reactions N Blood Transfusion N Lung Disease N Dermatologic Disorders N Defects or Inherited Disease N Breast Problem N Gestational Diabetes N Hematologic disorders N Anesthesia Complications N History of STI N Deep Vein Thrombosis N Polycystic ovary syndrome N Anxiety Disorder N Autoimmune disease N Arthritis N Infertility N Polyps N Acid Reflux (GERD) N History of abnormal pap N Cancer N Stroke N Varicosities N Neurologic/Epilepsy N Endometriosis N High Cholesterol N Headaches N Fibromyalgia N Kidney Disease N Heart Problems N Kidney or Bladder Problems N Thyroid Problems N GI Problems N Eating Disorder N Anemia N Art (IVF or FET) N Psychiatric Illness N Ovarian Cancer N Diabetes N Pulmonary (TB, Asthma) N Hepatitis/Liver Disease N No Past Medical History N Eczema N Urinary Tract Infection N Abuse/Domestic Violence N Asthma N Trauma/Violence N Depression/ depression N Heart Disease N Pre-Eclampsia N Hypertension N Osteoporosis N Thrombophilias N Gynecological History Statement/Question Response Abnormal Pap N Date of LMP Sexually Active? Y STIs/STDs N Menses Monthly N Age of first menstrual cycle 16 HPV Vaccine N Date of Last Pap Smear 03/17/2019 Sexual Problems? N Current Control Method IUD LMP Unknown Obstetrics History GPAL:G 3 P 3 0 0 3 Type Value Full Term 3 Living 3 Total 3 Past Encounters Encounter ID Performer Location Encounter Start Date Encounter Closed Date Diagnosis/Indication Diagnosis SNOMED-CT Code Diagnosis ICD10 Code Diagnosis Note [id number] Katharine Vieira [facility] [address] [address] 03/28/2021 09:40:40 03/28/2021 10:07:08 Gynecologic examination 59626680 Z01.419 Z11.51 Take Calcium with Vitamin D 1200mg daily if not receiving in daily diet. It is strongly advised to have an annual flu shot and up can obtain at most pharmacies . If you have not had a TDap shot in the last 10 years you should obtain one as well. Discussed with patient & provided with informatio n regarding Gardisil vaccine to prevent the 4 strains for HPV that cause cervical cancer if under age 26. Encourage safe sexual practices, to use condoms and limit partners if not already in a monogamous relationsh ip. Do monthly self breast exams. Have mammogram yearly or every other year depending on family history. BRCA testing is now available for patients with strong genetic history of female cancer. If interested contact the office. Family history of sister with possible ovarian cancer and other sister with cysts on her ovaries. Pt not interested in genetic testing. Engage in daily exercise of low impact aerobic exercise 45-60 minutes 4-5 times weekly. Avoid tobacco and illicit drugs as well as using moderation with alcohol intake less than 1-2 8 oz beverages daily. This lifestyle behavior pattern will lead to less health conditions and longer life span. If BMI greater than 25 weight watchers or dietary consult advised. Patient received above instructio ns, and questions have been answered. If you have any questions please call or respond to this email. Patient was made aware of the patient portal and may obtain a paper copy of today's plan if desired. [id number] [address] [place] [facility] [address] [address] 01/23/2022 10:55:11 01/23/2022 11:54:39 Vaginitis 85209845 N76.0 Vaginal discharge with an odor x 2 weeks. Has been using mendez saroj vaginal wash. We discussed vulvar care guidelines , only water and fingers to cleanse the vulva/vagi na.Dischar ge suspicous for BVWill start treatment for BV, vaginitis panel sentSTI endocervic al swab sentRTC if symptoms persist past treatment. Due for WWLupe in February, encouraged her to schedule. Mirena IUD strings visualized on exam Time spent with patient was 20 minutes Venereal d isease screening 865888755 Z11.3 [id number] Chanelle Hillman FREDDY [facility] [address] [address] 03/01/2022 10:02:54 03/19/2022 10:13:34 Left without being seen [id number] 9102 Z53.21 [id number] Chanelle Hillman FREDDY [facility] [address] [address] 04/09/2022 09:28:51 04/09/2022 14:03:16 Vaginitis 12427031 N76.0 Family his tory of malignant neoplasm of ovary 242117677 Z80.41 Gynecologi c examination 06601044 Z01.419 Take Calcium with Vitamin D 1200mg daily if not receiving in daily diet. It is strongly advised to have an annual flu shot and up can obtain at most pharmacies . If you have not had a TDap shot in the last 10 years you should obtain one as well. Discussed with patient & provided with informatio n regarding Gardisil vaccine to prevent the 4 strains for HPV that cause cervical cancer if under age 26. Encourage safe sexual practices, to use condoms and limit partners if not already in a monogamous relationsh ip. Do monthly self breast exams. Have mammogram yearly or every other year depending on family history. BRCA testing is now available for patients with strong genetic history of female cancer. If interested contact the office. Engage in daily exercise of low impact aerobic exercise 45-60 minutes 4-5 times weekly. Avoid tobacco and illicit drugs as well as using moderation with alcohol intake less than 1-2 8 oz beverages daily. This lifestyle behavior pattern will lead to less health conditions and longer life span. If BMI greater than 25 weight watchers or dietary consult advised. Patient received above instructio ns, and questions have been answered. If you have any questions please call or respond to this email. Patient was made aware of the patient portal and may obtain a paper copy of today's plan if desired. WWEMirena IUD, inserted 04/10/2019, happy with IUD, due to be replaced 04/10/2026P ap done todaySTI testing declinedSh e has been having a vaginal discharge with an odor, suspect BV. Vulvar care guidelines discussed. Rx metronidaz ole sentFamily hx of 2 sisters with possible ovarian cancer? Patient unsure if it was cervical/e ndometrial / or ovarian. She knows they both had ovaries removed in their 40's.We discussed genetic testing, order given to patient.UT D with PCPRTC in 1 year for WWE or sooner if needed [id number] Chanelle Hillman FREDDY [facility] [address] [address] 01/22/2023 14:37:14 01/22/2023 16:27:52 Screening procedure 33792865 Z13.9 Reproducti ve care management 086357804 Z31.9 Today we discussed IUD removalShe is irwin jon TTC. She has questions about risk of complicati ons and chromosoma l abnormalit ies with advanced maternal age. Discussed increase risk of these compared to <35. Offered MFM preconcept ion counseling , referral sent. Offered fertility consult. Offered IUD removal, she would like to consider this and return to clinic once she decides. Recommend starting vitamin now. Time spent in visit is a total of 15 mins with at least 50% of visit consisting of counseling and review of plan of care. [id number] GERHARD [place] [facility] [address] [address] 06/05/2023 10:09:40 06/05/2023 11:09:09 Gynecologic examination 34990174 Z01.419 Z11.51 Suggested Calcium with Vitamin D 1200-1500m g daily. Patient advised to get an annual flu shot in the fall and she could obtain at [facility] or [facility] take care clinic. Also to obtain TDap vaccinatio n if you have not had one in the last 10 years. Recommend yearly mammograms . Encouraged monthly self breast exams. Encourage safe sexual practices, to use condoms and limit partners if not already in a monogamous relationsh ip. Engage in daily exercise of low impact aerobic exercise 45-60 minutes 4-5 times weekly. Avoid tobacco and illicit drugs as well as using moderation with alcohol intake less than 1-2 8 oz beverages daily. This lifestyle behavior pattern will lead to less health conditions and longer life span. If BMI greater than 25 weight watchers or dietary consult advised. All questions have been answered. Patient appears to understand informatio n, but if you have any questions please call or respond to this email. WWEB - Mirena IUD, inserted 04/10/2019( +) strings noted on examhappy with IUD and would like to continue with this method of BCpap updatedSTI testing declinedpr imary mammogram order givenUTD with PCP for routine labsRTC in 1 year or sooner if needed Screening for malignant neoplasm of breast 743775750 Z12.39 Urinary symptoms 6410498 08 R39.9 suspect UTIcx sentrx sent, r/b/a reviewedno tify office if symptoms persist past treatment, precaution s reviewed Time spent in visit is a total of 25 mins with at least 50% of visit consisting of counseling and review of plan of care. Health Concerns Section Related Observation LastModified by Organization Detai ls LastModified Time None Recorded Concern Status LastModified by Organization Details LastModified Time None Recorded Advance Directives Directive None Recorded Payers Encounter Date Sequence Insurance Name Policy Number Policy Valle Covered Member ID Valle Member ID Guarantor Name 01/23/2022 1 [employer] ON OR AFTER 03/30/21 (MEDICAID REPLACEMENT - HMO) Sammie Brush [id number] Sammie Brush 03/01/2022 1 [employer] ON OR AFTER 03/30/21 (MEDICAID REPLACEMENT - HMO) Sammie Brush [id number] Sammie Brush 04/09/2022 1 [employer] ON OR AFTER 03/30/21 (MEDICAID REPLACEMENT - HMO) Sammie Brush [id number] Sammie Brush 01/22/2023 1 [employer] ON OR AFTER 03/30/21 (MEDICAID REPLACEMENT - HMO) Sammie Brush [id number] Sammie Brush 06/05/2023 1 [employer] ON OR AFTER 03/30/21 (MEDICAID REPLACEMENT - HMO) Sammie Brush [id number] Sammie Brush Notes Date Note Type Note Provider Name and Address Organization Details Recorded Time 01/23/2022 text/html Here today for vaginal discharge with an odor that started 2 weeks ago. Notices odor more with intercourse. No vaginal itching. GERHARD [place] [address], [place], [address], [facility] 01/23/2022 11:28:24 01/22/2023 text/html 42yopresents to discuss IUD removalmay be interested in TTC, has questions about risk associated with advanced maternal age GERHARD [place] [address], [place], [address], [facility] 01/22/2023 16:21:09 06/05/2023 text/html Annual GYNReport ed bypatient.Menstrua l cycle:Normal menses Urinary symptoms:No hematuria; No incontinence;Burni ng sensation during urination;Increase d urinary frequency Vulva:No genital lesion Vagina:Normal vaginal discharge Breast:No breast pain; No breast lump; No nipple discharge Current Contraception:Sati sfied with current contraception; Intrauterine device (iud); mirena IUD inserted 04/10/2019 Sexual complaints:No sexual complaints; No pain during intercourse; Normal libido Menopausal Symptoms:No menopausal symptoms; Normal vaginal lubrication Psychological symptoms:No depression; No anxiety; No PMDD Preventive measures:Encourage self breast examination; Encourage regular exercise; Encourage no tobacco use; Encourage regular mammograms starting age 40 [address] [address], [place], [address], [facility] 06/05/2023 11:04:44 OBGyn Episode Ob Episode Information Episode Created Date Number of Fetuses Patient Bloodtype Patient rh Status Prepregnancy Weight lbs Domestic Partner Domestic Partner Phone Father Name Dish Carrier Status 03/08/20 21 1 CLOSED Fetus Data First Name Last Name Admitted to NICU Weight (g) Sex Living Outcome Pediatric Complications Fetus ID Race Codes Race Delivery Type [id number] Vaginal Delivery Alejandro Calculation Initial Alejandro Date Initial Exam Date Initial Exam Provider Initial Ultrasound Date Last Menstrual Period Date Ultra Sound Weeks Gestation 0 Eighteen To Twenty Week Alejandro Update Ultra Sound Date Fundal Height At Umbil Quickening Date Ultra Sound Latest Weeks Gestation Final Alejandro Confirmed By Final Alejandro Confirmed Date Final Alejandro Date Ultra Sound Latest Days Gestation 0 0 Menstrual History Last Menstrual Date Menses Monthly On Bcp Conception Prior Menses Frequency Hcg Plus Date Menarche Onset Age Delivery Information Delivery Date Delivery Type Labor Anesthesia Weeks Gestation Incision Type Labor Labor Length Hrs Delivered By Post Complications Tubal Sterilization Discharge Date Comments 7 Discharge Information Feeding Method Contraceptive Method Maternal HG B and HCT Levels Ob Episode Information Episode Created Date Number of Fetuses Patient Bloodtype Patient rh Status Prepregnancy Weight lbs Domestic Partner Domestic Partner Phone Father Name Dish Carrier Status 03/08/20 21 1 CLOSED Fetus Data First Name Last Name Admitted to NICU Weight (g) Sex Living Outcome Pediatric Complications Fetus ID Race Codes Race Delivery Type [id number] Vaginal Delivery Alejandro Calculation Initial Alejandro Date Initial Exam Date Initial Exam Provider Initial Ultrasound Date Last Menstrual Period Date Ultra Sound Weeks Gestation 0 Eighteen To Twenty Week Alejandro Update Ultra Sound Date Fundal Height At Umbil Quickening Date Ultra Sound Latest Weeks Gestation Final Alejandro Confirmed By Final Alejandro Confirmed Date Final Alejandro Date Ultra Sound Latest Days Gestation 0 0 Menstrual History Last Menstrual Date Menses Monthly On Bcp Conception Prior Menses Frequency Hcg Plus Date Menarche Onset Age Delivery Information Delivery Date Delivery Type Labor Anesthesia Weeks Gestation Incision Type Labor Labor Length Hrs Delivered By Post Complications Tubal Sterilization Discharge Date Comments 4 Discharge Information Feeding Method Contraceptive Method Maternal HG B and HCT Levels Ob Episode Information Episode Created Date Number of Fetuses Patient Bloodtype Patient rh Status Prepregnancy Weight lbs Domestic Partner Domestic Partner Phone Father Name Dish Carrier Status 03/08/20 21 1 CLOSED Fetus Data First Name Last Name Admitted to NICU Weight (g) Sex Living Outcome Pediatric Complications Fetus ID Race Codes Race Delivery Type [id number] Vaginal Delivery Alejandro Calculation Initial Alejandro Date Initial Exam Date Initial Exam Provider Initial Ultrasound Date Last Menstrual Period Date Ultra Sound Weeks Gestation 0 Eighteen To Twenty Week Alejandro Update Ultra Sound Date Fundal Height At Umbil Quickening Date Ultra Sound Latest Weeks Gestation Final Alejandro Confirmed By Final Alejandro Confirmed Date Final Alejandro Date Ultra Sound Latest Days Gestation 0 0 Menstrual History Last Menstrual Date Menses Monthly On Bcp Conception Prior Menses Frequency Hcg Plus Date Menarche Onset Age Delivery Information Delivery Date Delivery Type Labor Anesthesia Weeks Gestation Incision Type Labor Labor Length Hrs Delivered By Post Complications Tubal Sterilization Discharge Date Comments 1 Discharge Information Feeding Method Contraceptive Method Maternal HG B and HCT Levels
--- OUTSIDE RECORDS SUMMARY | 2024-10-22 14:40 | XMS_ITS | Patient Health Summary ---
Author Organization [facility] Address [address] [place] [address] Care Team Providers Care Bookkeeping Teacher Name Role Phone Unavailable Primary Care Provider Unavailabl e Note from [facility],non-owned Affiliates and Associated Physician Practices is amultiple site organization consisting of ambulatory clinics and hospital sitesin [place], [place], [place] and [place]. This disclosure is being madepursuant to the Care Everywhere program and may not contain all information available regarding this patient. Last updated 18.[facility] Social History Tobacco Use Types Packs/Day Years Used Date Smoking Tobacco: Never Assessed Sex and Gender Information Value Date Recorded Sex Assigned at Not on file Gender Identity Not on file Sexual Orientation Not on file
--- OUTSIDE RECORDS SUMMARY | 2024-10-22 14:40 | XMS_ITS | Continuity of Care Document ---
Author Organization [facility] Address [address] [place] [address] Phone Care Team Providers Care Automatic Presser Name Role Phone MD DASILVA KATHRYN Unavailable Unavailable Procedures Procedure Date REPEAT ULTRASOUND NEW PT, LOW VISIT COMPREHENSIVE DETAILED ULTRASOUND Advance Directives Directive Yes / No Effective Date File Name No Information Encounters Encounter Description Practice Location Reason(s) For Visit Diagnoses Date Provider Providers Copied on Encounter [facility] , [address], [address], [place] tel:[phone] [facility] Elderly multigravida (>35 at [facility]C)complicati ng pregnancyMat care for (susp) chromosomal abnormality in fetus, otherObesity complicating pregnancyObesi ty, Class 3Unspecified blood type, Rh negativeWeeks Gestation of MD MIKE DASILVA. [address] [facility] [address], [place], [place], [id number], [place]. tel:[phone] Referring Provider: Manda SOTELO DR [facility] [address], [place], [address]. tel:[phone] NEW PT, LOW VISIT [facility] , [address], [place], [address], [place] tel:[phone] [facility] Elderly multigravida (>35 at [facility]C)complicati ng pregnancyMat care for (susp) chromosomal abnormality in fetus, otherObesity complicating pregnancyObesi ty, Class 3Unspecified blood type, Rh negativeWeeks Gestation of 4 MD ADWOA WEST. [address] [facility], [place], [place], [id number], . tel:[phone] Referring Provider: Manda SOTELO DR [facility] [address], [place], [address]. tel:[phone] Family History Family Member Type Diagnosis Age At Onset No Information Payers Payer name Insurance type Covered libertarian ID Authoriza tigregory(s) [employer] [id number] OPEN ACCESS PLU [id number] Social History Type Description Quantity Date Captured Comments Sex Female Smoking Status No Information Chief Complaint And Reason For Visit No Information Plan Of Treatment Date Type Action Status Appointment Sammie Garg BOOKED History Of Present Illness Encounter Date Complaint History Of Prese nt Illness No Information Instructions Date Instruction Additional Infor mation No Information Assessments Type Assessment Date No Information
--- OUTSIDE RECORDS SUMMARY | 2024-10-22 14:40 | XMS_ITS | Referral Summary ---
Author Organization [facility] Address [address] [place] [address] Care Team Providers Care Automatic Profile Shaper Operator Name Role Phone Unavailable Primary Care Provider Unavailabl e Source Comments [facility],non-owned Affiliates and Associated Physician Practices is amultiple site organization consisting of ambulatory clinics and hospital sitesin [place], [place], [place] and [place]. This disclosure is being madepursuant to the Care Everywhere program and may not contain all information available regarding this patient. Last updated 18.[facility] Social History Tobacco Use Types Packs/Day Years Used Date Smoking Tobacco: Never Assessed Sex and Gender Information Value Date Recorded Sex Assigned at Not on file Gender Identity Not on file Sexual Orientation Not on file Plan of Treatment Not on file
--- OUTSIDE RECORDS SUMMARY | 2024-10-22 14:40 | XMS_ITS | Clinical Summary ---
Author Organization [facility] Address [address] [place] [address] Care Team Providers Care Residential Program Coordinator Name Role Phone Unavailable Primary Care Provider Unavailabl e Source Comments [facility],non-owned Affiliates and Associated Physician Practices is amultiple site organization consisting of ambulatory clinics and hospital sitesin [place], [place], [place] and [place]. This disclosure is being madepursuant to the Care Everywhere program and may not contain all information available regarding this patient. Last updated 18.[facility] [employer] Social History Tobacco Use Types Packs/Day Years Used Date Smoking Tobacco: Never Assessed Sex and Gender Information Value Date Recorded Sex Assigned at Not on file Gender Identity Not on file Sexual Orientation Not on file Plan of Treatment Health Maintenance Due Date Last Done Comments LIPID TESTING 1982 MAMMOGRAM 1982 PAP SMEAR 1982 HIV SCREENING 1997 HEPATITIS C SCREENING 08/16/2000 DTAP/TDAP/TD VACCINES (1 - Tdap) 2001 HEPATITIS B VACCINE (1 of 3 - 19+ 3-dose series) 2001 COVID-19 VACCINE (4 - 2023-2 5 season) 2024 09/11/2021, 01/19/2021, 12/22/2020 INFLUENZA VACCINE (#1) 2024 07/19/2021 DEPRESSION SCREENING 09/30/2024 ZOSTER VACCINE (1 of 2) 2032 HIB VACCINE Aged Out No longer eligi ble based on patient's age to complete this topic HPV VACCINE Aged Out No longer eligi ble based on patient's age to complete this topic MENINGOCOCCAL (Group B) VACCINE Aged Out No longer eligible b ased on patient's age to complete this topic MENINGOCOCCAL VACCINE Aged Out No erwin adriel eligible based on patient's age to complete this topic PNEUMOCOCCAL VACCINE Aged Out No long er eligible based on patient's age to complete this topic
--- OUTSIDE RECORDS SUMMARY | 2024-10-22 14:40 | XMS_ITS | Patient Health Record ---
Author Organization [facility] Address [address] [place] [address] Care Team Providers Care Child Attendant Name Role Phone Italo Urbina Primary Care Provider Reason For Referral No Information Immunizations Vaccine Route Administration Date Status Comme nts COVID-19 Moderna 2nd IM Intramuscular 01/19/2021 Administered COVID-19 Moderna 1ST IM Intramuscular 12/22/2020 Administered EUA date 0. Screening reviewed and consent signed. Patient tolerated well. Plan Of Treatment No Information
== END 2024-10-19 16:54 | disposition home or self-care (01) ==
PROVIDERS: Registered Nurse; Emergency Provider Emergency Medicine
DX: R59.1 Generalized enlarged lymph nodes (principal)
CPT/HCPCS: 36415; 70481; 80053; 81025; 85025; 96372; 99284; J1885; Q9967

== ENCOUNTER 2024-10-20 18:02 | Emergency (ER) | payer OTHER, SELFPAY ==
[2024-10-20 18:09] VITALS: BP 119/83; PULSE 66; RESP 16; TEMP 36.3; O2SAT 100
--- NOTE | 2024-10-20 18:10 | ED.GENADULT ---
HPI - General Adult General Chief complaint: Ear Stated complaint: lump in front of left ear Time Seen by Provider: 10/20/24 18:10 Source: patient, RN notes reviewed and old records reviewed Mode of arrival: ambulatory Limitations: no limitations History of Present Illness HPI narrative: 44-year-old female presents to the [facility] with continued left ear pain. Had a complete workup done in the emergency room yesterday. Did take her 1st dose of Augmentin today. X-ray was negative, blood workup was negative. Patient reports freely killer area, raised area. Treatments prior to arrival: other (Augmentin) Related Data Allergies Allergy/AdvReac Type Severity Reaction Status Date / Time No Known Allergies Allergy Verified 10/20/24 18:05 Review of Systems Review of Systems: All systems reviewed & are unremarkable except as noted in HPI and below Constitutional: Constitutional: Reports no additional constitutional complaints ENT: Reports as per HPI Cardiovascular: Cardiovascular: Reports no additional cardiovascular complaints, Denies chest pain and Denies dyspnea Respiratory: Respiratory: Reports no additional respiratory complaints, Denies chest congestion, Denies cough and Denies dyspnea Musculoskeletal: Musculoskeletal: Reports no additional musculoskeletal complaints Integumentary/Breasts: Skin/Breast: Reports system reviewed and no additional complaints, except as docu PMFSH Comments At the time of my signature, I reviewed and agree with the nursing past medical, surgical, social, and family history. There is no relevant family history pertinent to the patient complaint. Exam Const: General: cooperative, healthy appearing, comfortable, no acute distress, well developed, alert and well nourished Nutritional Appearance: well nourished Orientation/consciousness: patient oriented x3 Limitations: no limitations HENMT: Head: normal to inspection Outer ear/TM images:  1. Swollen area preauricular left ear, raised, pink in color. No increased warmth. Eyes: General: appearance normal, both eyes and all related structures Alignment and Position: alignment normal Neck: Neck: normal visual inspection, full ROM, no lymphadenopathy and no meningeal signs Chest: Chest palpation & inspection: normal inspection of the chest Resp: Effort & Inspection: normal respiratory effort and able to speak in complete sentences Auscultation: clear to auscultation bilaterally, no crackles, no rales, no rhonchi and no wheezes Cardio: Rate: regular rate Skin: General skin exam: normal color and no rashes or lesions noted Neuro: General: patient oriented x3, gait normal, moves all extremities and no meningeal signs Cognition (Neuro): normal cognition Speech: normal speech Gait exam (Neuro): Normal gait present Extrem: General: normal to inspection, full ROM, capillary refill normal and normal gait Psych: Appearance: grossly normal and well kempt Mental Status: mental status grossly normal Speech and movement: Normal speech and movement present and Clear speech present Affect: normal affect Attitude: cooperative Course Course Level of Care: Express Care Visit Vital Signs Vital signs: Vital Signs Temperature 97.3 F L 10/20/24 18:09 Pulse Rate 66 10/20/24 18:09 Respiratory Rate 16 10/20/24 18:09 Blood Pressure 119/83 10/20/24 18:09 Pulse Oximetry 100 10/20/24 18:09 Oxygen Delivery Room Air 10/20/24 18:09 Temperature 97.3 F L 10/20/24 18:09 Pulse Rate 66 10/20/24 18:09 Respiratory Rate 16 10/20/24 18:09 Blood Pressure 119/83 10/20/24 18:09 Pulse Oximetry 100 10/20/24 18:09 Oxygen Delivery Room Air 10/20/24 18:09 Reviewed Medical Decision Making MDM Narrative Medical decision making narrative: Patient sitting comfortably in exam room. Nontoxic, vitals stable. Patient in no acute distress Patient presents for pre-auricular left ear discomfort, increased pain. Patient already on Augmentin Patient appropriate for outpatient treatment and follow-up Discharge instructions reviewed with patient, as well as provided in writing per nursing staff. The instructions also include specific and strict return/GO TO THE ER as well as f/u information. All questions have been answered, and the patient deny any further questions with discharge and discharge plan. Some parts of this dictation were generated by voice recognition software and may contain typographical and/or grammatical inaccuracies. Differential Diagnosis Differential Diagnosis: Lymph node, otitis media, otitis externa Medical Records Medical records reviewed: Yes I reviewed the external patient's medical records. Vital Signs Vital Signs: Vital Signs Temperature 97.3 F L 10/20/24 18:09 Pulse Rate 66 10/20/24 18:09 Respiratory Rate 16 10/20/24 18:09 Blood Pressure 119/83 10/20/24 18:09 Pulse Oximetry 100 10/20/24 18:09 Oxygen Delivery Room Air 10/20/24 18:09 Temperature 97.3 F L 10/20/24 18:09 Pulse Rate 66 10/20/24 18:09 Respiratory Rate 16 10/20/24 18:09 Blood Pressure 119/83 10/20/24 18:09 Pulse Oximetry 100 10/20/24 18:09 Oxygen Delivery Room Air 10/20/24 18:09 Reviewed Lab Data Lab results reviewed: Yes I reviewed the patient's lab results. Labs: Reviewed Critical Care Time Critical Care Time Critical Care Time: No Discharge Plan Discharge Clinical Impression: Swelling of lymph node Patient Disposition: Home, Self-Care Condition: Stable Instructions: Antibiotic Form, Lymphadenopathy (ED) Additional Instructions: Wash area with warm soapy water twice daily, pat dry. Do not apply any topical to the area. Take Motrin alternating with Tylenol as needed for pain Take antibiotic as already prescribed Do not squeeze or pick at the area Apply ice pack every 2-3 hours for 15-20 minutes while awake For new or worsening symptoms go directly to the emergency room Patient Language: Kinyarwanda Prescriptions: No Action amoxicillin-pot clavulanate 875-125 mg tablet 1 tablet PO Q12H 10 Days Qty: 20 0RF Follow-up/Referrals: PHYSICIAN,REINFORCED CONCRETE INSPECTOR [Primary Care Provider] - Time of Disposition: 18:17
== END 2024-10-20 18:20 | disposition home or self-care (01) ==
PROVIDERS: Emergency Provider Nurse Practitioner
DX: R59.9 Enlarged lymph nodes, unspecified (principal)
CPT/HCPCS: 99211; G0463